=== PATIENT | female | born 1955 | race Caucasian/White ===

== ENCOUNTER 2018-03-26 10:00 | Outpatient (RCR) | payer MEDICARE, OTHER ==
[~2018-03-26 10:00] MED LIST: DOXY-228 PO; GOLYTE PO; OXYC-865 PO; [UNRECOGNIZED DRUG - CODE] PO
== END 2018-04-02 09:21 | disposition home or self-care (01) ==
LOC: RAON 10:00
PROVIDERS: ATTEND Radiology Radiation Oncology
DX: C44.519 Basal cell carcinoma of skin of other part of trunk (principal); Z92.3 Personal history of irradiation
CPT/HCPCS: 99211

== ENCOUNTER 2018-05-01 00:53 | Day surgery (SDC) | payer MEDICARE, OTHER ==
[~2018-05-01] VITALS: Ht 167.6 cm; Wt 79.4 kg
[2018-05-01] MEDS ORDERED: PROPOFOL EMUL(*) 10MG/ML 20 ML 20 ML ONE ×2 (07:20→10:41)
[2018-05-01] MEDS ORDERED: NORMOSOL R SOLN(*) 1000 ML BAG 1,000 ML IV PRN (09:30)
[2018-05-01] MEDS ORDERED: LIDOCAINE/SOD BICARB 8.4% SYR ID ONE (09:30)
[2018-05-01 09:32] VITALS: BP 126/74
[2018-05-01 10:58] VITALS: BP 93/59
--- NOTE | 2018-05-01 11:03 | Short(Outpt) Discharge Summary ---
Discharge Summary Reason for Hosp/Final Diag: (1) Family history of colon cancer in mother Hospital Course & Plan: Colonoscopy completed without any problems. Departure Discharge to: Home Discharge Instructions Home Meds No Active Prescriptions or Reported Meds Diet: Regular Activity: As Tolerated Special Instructions: Your colonoscopy was completed without any problems and your prep was excellent (Good Job!!). Your colon looked completely normal. I recommend that you have another colonoscopy in 5 years for continued screening due to your family history of colon cancer. SAMUEL AKINS MD May 01, 2018 11:03
[2018-05-01 11:10] VITALS: BP 99/60
[2018-05-01 11:12] VITALS: BP 103/54
== END 2018-05-01 11:28 | disposition home or self-care (01) ==
LOC: OR 00:53
PROVIDERS: ATTEND Surgery
DX: Z12.11 Encounter for screening for malignant neoplasm of colon (principal); Z80.0 Family history of malignant neoplasm of digestive organs
CPT/HCPCS: 00812; G0121; J2704